=== PATIENT | female | born 1930 | race Caucasian/White ===

== ENCOUNTER 2017-02-04 09:38 | Emergency (ER) | payer MEDICARE, OTHER ==
[~2017-02-04] VITALS: Ht 175.3 cm; Wt 57.8 kg
[~2017-02-04 09:38] MED LIST: ASPI-496 PO; CLON-364 PO; LEVO150T5 PO; LEVO25TA4 PO; MOME220A9 IH; SERT100T PO; TIMO1DRO2 EACHEYE; TRAZ50TA18 PO
[2017-02-04 09:40] VITALS: BP 138/78
== END 2017-02-04 11:49 | disposition home or self-care (01) ==
LOC: ED 10:03
DX: S42.435A Nondisplaced fracture (avulsion) of lateral epicondyle of left humerus, initial encounter for closed fracture (principal); I10 Essential (primary) hypertension; E03.9 Hypothyroidism, unspecified; W10.9XXA Fall (on) (from) unspecified stairs and steps, initial encounter; Y93.89 Activity, other specified; Y99.8 Other external cause status; Y92.009 Unspecified place in unspecified non-institutional (private) residence as the place of occurrence of the external cause
CPT/HCPCS: 29105

== ENCOUNTER 2019-08-10 10:39 | Emergency (ER) | payer MEDICARE, OTHER ==
[~2019-08-10] VITALS: Ht 175.3 cm; Wt 62.0 kg
[~2019-08-10 10:39] MED LIST changes: -TRAZ50TA18 PO; +TRAZ50TA66 PO
--- NOTE | 2019-08-10 11:07 | NUR ---
PT PLACED ON HEART MONITOR, BP CUFF, PULSE OX. WARM BLANKET AND CALL LIGHT PROVIDED.
--- NOTE | 2019-08-10 11:30 | NUR ---
URINE COLLECTED/SENT TO LAB. 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 CALL LIGHT WITHIN REACH.
[2019-08-10 11:58] LABS: BASOPHILS # (AUTO) 0.02 x10^3/uL (0-0.1); BASOPHILS % (AUTO) 0 % (0-1); EOSINOPHILS # (AUTO) 0.11 x10^3/uL (0-0.4); EOSINOPHILS % (AUTO) 1 % (1-7); LYMPHOCYTES # (AUTO) 0.83 x10^3/uL (1-3.4); LYMPHOCYTES % (AUTO) 10 % (22-44); MD NO; MEAN CORPUSCULAR HEMOGLOBIN 30.9 pg (27.0-34.8); MEAN CORPUSCULAR HGB CONC 32.9 g/dL (32.4-35.8); MEAN CORPUSCULAR VOLUME 93.8 fL (80-100); MEAN PLATELET VOLUME 8.7 fL (7.4-10.4); MONOCYTES # (AUTO) 0.78 x10^3/uL (0.2-0.8); MONOCYTES % (AUTO) 9 % (2-9); NEUTROPHILS # (AUTO) 6.96 x10^3/uL (1.8-6.8); NEUTROPHILS % (AUTO) 80 % (42-75); PLATELET COUNT 218 x10^3/uL (130-400); RED BLOOD COUNT 5.06 x10^6/uL (3.82-5.3)
[2019-08-10 12:09] LABS: ALBUMIN 3.6 g/dL (3.4-5.0); ANION GAP 5 mmol/L (5-15); CALCIUM 9.3 mg/dL (8.5-10.1); CHLORIDE 106 mmol/L (98-107); CREATININE 0.81 mg/dL (0.55-1.02)
[2019-08-10 12:16] LABS: MICROSCOPIC NOT IND
[2019-08-10 12:18] VITALS: BP 146/66
--- NOTE | 2019-08-10 12:18 | NUR ---
ALL RESULTS BACK, PT FOR RECHECK.
--- NOTE | 2019-08-10 13:13 | NUR ---
TAXI VOUCHER GIVEN FOR SAFE RIDE HOME.
== END 2019-08-10 13:15 | disposition home or self-care (01) ==
LOC: ED 12:51
DX: R53.1 Weakness (principal); I10 Essential (primary) hypertension
CPT/HCPCS: 36415; 80048; 81003; 82040; 85025; 99283

== ENCOUNTER 2019-08-14 16:22 | Observation (INO) | payer MEDICARE, OTHER ==
[~2019-08-14] VITALS: Ht 175.3 cm; Wt 62.0 kg
[~2019-08-14 16:22] MED LIST changes: -CLON-364 PO; +CLON0.5T11 PO
--- NOTE | 2019-08-14 16:38 | NUR ---
PT REPORTS COUGH WITH PHLEGM, TOLD SHE WAS DEHYDRATED BY ERMD. PT NOW REPORTS LIGHT HEADEDNESS. ORTHOS COMPLETED. PT SPEAKING CLEARLY, RESPIRATIONS EVEN AND UNLABORED, STRONG COUGH WHEN PT DOES COUGH. AWAITING ERMD EVAL.
[2019-08-14] MEDS ORDERED: SODIUM CHLORIDE FLUSH 10ML SYR IVF ONE (17:00)
[2019-08-14 17:15] LABS: MICROSCOPIC NOT IND
[2019-08-14 17:17] LABS: CULTURE INDICATED? NO
[2019-08-14 17:28] LABS: BASOPHILS # (AUTO) 0.01 x10^3/uL (0-0.1); BASOPHILS % (AUTO) 0 % (0-1); EOSINOPHILS # (AUTO) 0.03 x10^3/uL (0-0.4); EOSINOPHILS % (AUTO) 1 % (1-7); LYMPHOCYTES # (AUTO) 0.87 x10^3/uL (1-3.4); LYMPHOCYTES % (AUTO) 18 % (22-44); MD NO; MEAN CORPUSCULAR HEMOGLOBIN 30.6 pg (27.0-34.8); MEAN CORPUSCULAR HGB CONC 32.9 g/dL (32.4-35.8); MEAN CORPUSCULAR VOLUME 92.8 fL (80-100); MEAN PLATELET VOLUME 8.6 fL (7.4-10.4); MONOCYTES # (AUTO) 0.75 x10^3/uL (0.2-0.8); MONOCYTES % (AUTO) 16 % (2-9); NEUTROPHILS # (AUTO) 3.17 x10^3/uL (1.8-6.8); NEUTROPHILS % (AUTO) 66 % (42-75); PLATELET COUNT 199 x10^3/uL (130-400); RED BLOOD COUNT 5.02 x10^6/uL (3.82-5.3); RED CELL DISTRIBUTION WIDTH 14.3 % (9.6-15.2)
[2019-08-14 17:37] LABS: ALANINE AMINOTRANSFERASE 36 U/L (12-78); ALBUMIN 3.5 g/dL (3.4-5.0); ANION GAP 5 mmol/L (5-15); CALCIUM 8.7 mg/dL (8.5-10.1); CHLORIDE 106 mmol/L (98-107); CREATININE 0.87 mg/dL (0.55-1.02)
[2019-08-14 17:39] LABS: ALKALINE PHOSPHATASE 67 U/L (45-117); BILIRUBIN,TOTAL 0.3 mg/dL (0.2-1.0); TOTAL PROTEIN 7.5 g/dL (6.4-8.2)
--- NOTE | 2019-08-14 17:44 | NUR ---
son estrella called : [phone] for more information. Will call back with more information later. Pt sitting up in bed, respirations even and unlabored on ra. NAD noted at this time.
--- NOTE | 2019-08-14 18:04 | NUR ---
PT AMBULATES WELL WITH ONE PERSON ESCORT TO BATHROOM. BACK IN BED. NAD NOTED AT THIS TIME. RESPIRATIONS EVEN AND UNLABORED ON RA.
--- NOTE | 2019-08-14 19:25 | NUR ---
PLAN FOR PT TO BE ADMITTED, IS PT'S REQUEST. FAMILY NOTIFIED. PT SITTING UP IN BED EATING TURKEY SANDWICH. AWAITING BED.
--- NOTE | 2019-08-14 19:40 | NUR ---
REPORT GIVEN, RN REQ 15 MIN TO PREPARE THE ROOM UPSTAIRS FOR PT.
[2019-08-14 20:58] VITALS: BP 144/84
[2019-08-14] MEDS ORDERED: DOCUSATE 100 MG CAPSULE PO PRN (21:00)
[2019-08-14] MEDS ORDERED: ONDANSETRON ODT 4 MG PO PRN (21:00)
[2019-08-14] MEDS ORDERED: LIDODERM 5% PATCH TD PRN (21:00)
[2019-08-14] MEDS ORDERED: ENOXAPARIN 40 MG/0.4 ML SQ SCH (21:00)
[2019-08-14] MEDS ORDERED: ENALAPRILAT 1.25 MG/ML, 2ML IVPush PRN (21:00)
[2019-08-14] MEDS ORDERED: ACETAMINOPHEN 325 MG TABLET PO PRN (21:00)
[2019-08-14] MEDS ORDERED: MELA1TAB8 PO (21:53)
[2019-08-14] MEDS ORDERED: MELATONIN 5 MG TABLET ONE (22:17)
[2019-08-14] MEDS ORDERED: TRAZODONE 50MG TABLET ONE (22:18)
[2019-08-14] MEDS ORDERED: MELATONIN 5 MG TABLET PO SCH (22:30)
[2019-08-14] MEDS ORDERED: TRAZODONE 50MG TABLET PO SCH (22:30)
[2019-08-14 23:33] LABS: TROPONIN I < 0.015 ng/mL (0.000-0.045)
[2019-08-15 00:27] VITALS: BP 138/76
[2019-08-15 05:17] LABS: BASOPHILS # (AUTO) 0.01 x10^3/uL (0-0.1); BASOPHILS % (AUTO) 0 % (0-1); EOSINOPHILS # (AUTO) 0.07 x10^3/uL (0-0.4); EOSINOPHILS % (AUTO) 2 % (1-7); LYMPHOCYTES # (AUTO) 1.11 x10^3/uL (1-3.4); LYMPHOCYTES % (AUTO) 26 % (22-44); MD NO; MEAN CORPUSCULAR HEMOGLOBIN 30.7 pg (27.0-34.8); MEAN CORPUSCULAR HGB CONC 33.4 g/dL (32.4-35.8); MEAN CORPUSCULAR VOLUME 92.1 fL (80-100); MONOCYTES # (AUTO) 0.75 x10^3/uL (0.2-0.8); MONOCYTES % (AUTO) 18 % (2-9); NEUTROPHILS # (AUTO) 2.34 x10^3/uL (1.8-6.8); NEUTROPHILS % (AUTO) 55 % (42-75); PLATELET COUNT 176 x10^3/uL (130-400); RED BLOOD COUNT 4.38 x10^6/uL (3.82-5.3); RED CELL DISTRIBUTION WIDTH 14.3 % (9.6-15.2)
[2019-08-15 05:20] LABS: ANION GAP 6 mmol/L (5-15); CALCIUM 9.1 mg/dL (8.5-10.1); CHLORIDE 107 mmol/L (98-107)
[2019-08-15 05:31] LABS: CREATININE 0.75 mg/dL (0.55-1.02); TROPONIN I < 0.015 ng/mL (0.000-0.045)
[2019-08-15 07:29] VITALS: BP 153/86
[2019-08-15] MEDS ORDERED: LIDODERM REMOVE PATCH NOTE XX SCH (09:30)
[2019-08-15 13:52] VITALS: BP 160/80
[2019-08-15] MEDS ORDERED: THYROID 30 MG TABLET PO SCH (14:30)
[2019-08-15] MEDS ORDERED: MOMETASONE FUROATE HOMEINH PRN (14:30)
[2019-08-15] MEDS ORDERED: THYR30TA PO (16:48)
[2019-08-15] MEDS ORDERED: MELATONIN 3 MG TABLET PO SCH (21:00)
[2019-08-15] MEDS ORDERED: TRAZODONE 50MG TABLET PO SCH (21:00)
[2019-08-15] MEDS ORDERED: TEMPLATE NON-FORMULARY MED. (Melatonin/Pyridoxine Hcl (B6)** (Melatonin 5 Mg Tablet**) 1 T PO SCH (21:00)
[2019-08-15] MEDS ORDERED: PYRIDOXINE 25MG TABLET PO SCH (21:00)
[2019-08-16] MEDS ORDERED: LEVOTHYROXINE 150 MCG TABLET PO SCH (06:00)
[2019-08-16] MEDS ORDERED: SERTRALINE 100MG TABLET PO SCH (09:00)
[2019-08-16] MEDS ORDERED: ASPIRIN 81 MG TABLET EC PO SCH (09:00)
== END 2019-08-15 18:10 | disposition home or self-care (01) ==
LOC: ED 16:44 → EDIP 19:07 → INTOOBSV 19:07 → 4WST 20:43
PROVIDERS: ADMIT Internal Medicine; ATTEND Family Medicine
DX: R55 Syncope and collapse (principal); R53.1 Weakness; I10 Essential (primary) hypertension; F33.9 Major depressive disorder, recurrent, unspecified; H40.9 Unspecified glaucoma; E03.9 Hypothyroidism, unspecified; J45.909 Unspecified asthma, uncomplicated; I87.2 Venous insufficiency (chronic) (peripheral); R05 Cough; E86.0 Dehydration; Z88.0 Allergy status to penicillin; Z79.82 Long term (current) use of aspirin; Z79.899 Other long term (current) drug therapy
CPT/HCPCS: 36415; 70450; 71045; 80048; 80053; 81003; 83605; 84439; 84443; 84481; 84484; 85025; 87040; 93005; 93306; 96372; 97161; 97165; 99284; G0378; J1650